=== PATIENT | male | born 1935 | race African-American/Black ===

== ENCOUNTER 2016-12-15 17:02 | Inpatient (IN) | payer MEDICARE ==
--- NOTE | ~2016-12-15 | HP ---
History And Physical [id number] [place]. [address] NAME: PIA LAGUNA JR : 39 STATUS : ADM IN [facility]#: [id number] AGE: 81 ADM/REG DATE : 12/15/16 MR#: [id number] REPORT SERV DATE: 12/16/16 DICTATED BY: NORIS MENARD DATE: 12/16/16 REPORT STATUS : Draft TRANSCRIBED BY: MODMary Jane DATE: 12/16/16 DATE OF ADMISSION: 12/15/2016 CHIEF COMPLAINT: Altered mental status and fever. HISTORY OF PRESENT ILLNESS: Mr. Laguna is a 81-year-old man who was diagnosed with influenza yesterday at the [facility] and was immediately started on Tamiflu. However, when he arrived at home, he had altered mental status and he collapsed, 911 was dispatched. In the ER, he had a temp of 102.8 and his O2 saturation was in the 70s. He was immediately put on BiPAP and transferred to the IMCU. Pulmonary was consulted and he has been weaned down to 4 L. He is confused. He does not seem to recognize me. He is complaining of pain in his left side. He has known history of rib fractures from a fall the day before. PAST MEDICAL HISTORY: Significant for mild dementia, severe COPD, emphysema, and significant pulmonary hypertension. He also has bronchiectasis. He also has diastolic dysfunction with an EF of 59%, gastroesophageal reflux disease, constipation, depression. He was an ex- smoker. ALLERGIES: NO KNOWN DRUG ALLERGIES. CURRENT MEDICATIONS: Included Tylenol 500 mg two tabs 3 times a day, Tamiflu, Mucinex 600 mg twice daily for 7 days, Prilosec 20 daily, rosuvastatin 10 mg daily, aspirin 81 daily, Breo 100 one puff daily, potassium 20 mEq twice daily, Robitussin as needed, Celexa 20 mg at bedtime, albuterol q.6 hours as needed, ProAir HFA one puff q.4 hours as needed, Compazine one puff twice daily, Symbicort 164.5 mcg two puffs every 12 hours, Spiriva 18 mcg one cap daily, furosemide 20 mg daily, Flonase two sprays daily. SOCIAL HISTORY: He is an ex-smoker, ex-alcoholic. He lives with his niece. FAMILY HISTORY: Significant for hypertension, diabetes, and dementia. REVIEW OF SYSTEMS: He is having pain on his left side. Denies chest pain, shortness of breath. No nausea, vomiting, or diarrhea. PHYSICAL EXAMINATION: VITAL SIGNS: Temp is 98.9, blood pressure is 134/74, pulse is 90, respiratory rate is 30, O2 saturation on 5 L was 95%, but he is currently on 4 L. GENERAL: He is a frail elderly man in no apparent distress. HEENT: Normocephalic, atraumatic. Conjunctiva not injected. No scleral icterus. He is edentulous. CARDIAC: Regular rate and rhythm. LUNGS: He has generalized decreased breath sounds. No wheezing, rhonchi, or rales appreciated. He does have tenderness on his left side. ABDOMEN: Positive bowel sounds. Soft, nondistended, nontender. : No Ramirez in use. History And Physical [address] [place]. [address] NAME: PIA LAGUNA : 39 STATUS : ADM IN [facility]#: [id number] AGE: 81 ADM/REG DATE : 12/15/16 MR#: [id number] REPORT SERV DATE: 12/16/16 DICTATED BY: NORIS MENARD DATE: 12/16/16 REPORT STATUS : Draft TRANSCRIBED BY: YURI DATE: 12/16/16 EXTREMITIES: No edema. SKIN: No pressure ulcers. NEURO: He is alert, fluent. He knows who he is, but he is not quite sure where he is and he does not recognize me. He is also hard of hearing which makes it a little difficult, but he has about 4/5 strength in all of his extremities. No facial droop. He does have a slight tremor. LABORATORY EVALUATION: White count was 7.3, hemoglobin 13.6, hematocrit 39.6. Glucose 198. Lactate was normal at 1. Procalcitonin was normal at 0.12. Chemistries: Sodium was 137, potassium 4.7, chloride 102, bicarb 20, BUN 26, creatinine 1.3, albumin was 3.4. Troponin was 0.04. BNP was 54.3. He had an ABG that showed a pH of 7.37, 39, 139, 21.9, and 99.1%. Chest x-ray show bibasilar linear fibrosis and/or chronic atelectasis, pleural thickening or fluid in the costophrenic angle. CAT scan of the abdomen and pelvis showed left-sided fractures, cardiomegaly with bibasilar atelectasis. When compared to previous imaging, these changes were chronic. He also had another chest x-ray this morning that showed bibasilar atelectasis, right greater than left. EKG showed sinus tachycardia at 128 beats per minute. There is a rightward axis and T-wave inversion in V4, but no acute ST-T wave changes. IMPRESSION AND PLAN: 1. This is an elderly man with severe chronic obstructive pulmonary disease and pulmonary hypertension and bronchiectasis, who developed an influenza infection with high fever. We will continue Tamiflu, even though there is no definite pneumonia. His condition is guarded. We will go ahead and treat him with Levaquin as a precaution. We will continue his oxygen and continue to wean as necessary. Continue bronchodilators. Continue IV steroids, and Pulmonary of course to continue to follow. 2. Rib fractures. I want to avoid any stronger medications, i.e. opioids with his delirium and his respiratory status. So, we will use Tylenol and Voltaren gel for pain control. 3. The patient has mild dementia at baseline and now does have some delirium. We will just continue to monitor and hopefully as he feels better that will improve. 4. Constipation. Continue Senokot. 5. The patient is a DNR, limited additional intervention and I have updated his niece, Ms. Sims by phone. SIRISHA/EZEQUIELL Noris Menard M.D. / [id number] CC: Gab Garcia J. Mack
--- NOTE | ~2016-12-15 | DS ---
Discharge Summary [facility] [address] [place]. [address] NAME: PIA BAUGH JR : 39 STATUS : DIS IN PAT#: [id number] AGE: 81 ADM/REG DATE : 12/15/16 MR#: [id number] REPORT SERV DATE: 12/29/16 DICTATED BY: NORIS MENARD DATE: 12/28/16 REPORT STATUS : Draft TRANSCRIBED BY: YURI DATE: 12/28/16 Data Collection from hospitalization DISCHARGE DIAGNOSES: 1. Chronic obstructive pulmonary disease exacerbation. 2. Influenza. 3. Delirium/weakness. 4. Hypertension. 5. Gastroesophageal reflux disease. 6. Mild dementia. 7. Emphysema. 8. Pulmonary hypertension. 9. Depression. 10.Former tobacco use. CONSULTATIONS: Angy James M.D. PROCEDURES PERFORMED: None. DISCHARGE MEDICATION: Tylenol caplet 1000 mg three times a day, Norvasc 2.5 mg daily, aspirin 81 mg daily, Lipitor 20 mg daily, Celexa 20 mg at bedtime, Voltaren gel 2 g topically three times a day, Flonase nasal spray two sprays nasally in each nostril twice a day, Lasix 20 mg daily, guaifenesin LA 600 mg twice a day, Tamiflu 75 mg twice a day, Protonix 40 mg before breakfast, Sarna 1 application topically three times a day, Spiriva one capsule via HandiHaler daily as instructed, Deltasone 40 mg with breakfast, Proventil 3 mL via inhaler every four hours while awake, Mylanta 30 mL every six hours as needed, Robitussin 200 mg four times a day as needed, Senokot two tablets at bedtime as needed, Proventil 3 mL via inhaler every two hours as needed, Flector patches 1 patch topically twice a day for 30 days, Crestor 10 mg daily, Breo Ellipta one puff via inhaler daily, Klor- Con 20 mEq twice a day, and Symbicort as instructed. CONDITION AT DISCHARGE: Stable. DISPOSITION: The patient was discharged to [facility] on a mechanical soft diet with activities as instructed. He will follow up at [facility] in 2 weeks following discharge. He will follow up with Dr. Ramirez in 2 to 3 weeks following discharge. HOSPITAL COURSE: This is a 81-year-old man who was diagnosed with influenza on the day prior to this admission at the [facility] and was immediately started on Tamiflu. However, when he arrived home, he developed an altered mental status and he collapsed. 911 was called. In the emergency room, he had a temperature of 102.8 and his O2 saturation was in the 70s. He was immediately placed on BiPAP and transferred to the [facility]. He was admitted to the hospital at this time for further evaluation and treatment. Upon admission, he was seen by Dr. Angy James regarding hypoxia. The patient had been treated with BiPAP supplemental oxygen, bronchodilators, and systemic steroids, and he responded quickly. He was currently doing much better with regard to his oxygenation. He Discharge Summary [address] [place]. [address] NAME: PIA BAUGH : 39 STATUS : DIS IN PAT#: [id number] AGE: 81 ADM/REG DATE : 12/15/16 MR#: [id number] REPORT SERV DATE: 12/29/16 DICTATED BY: NORIS MENARD DATE: 12/28/16 REPORT STATUS : Draft TRANSCRIBED BY: YURI DATE: 12/28/16 was complaining of significant pain secondary to right-sided rib fractures related to his fall. He also complained of a productive cough with thick green sputum. He does have a long history of COPD and had been on inhalers and as an outpatient. Chest x-ray revealed bibasilar atelectasis, small bilateral effusions, and hyperinflation consistent with COPD. Procalcitonin level was 0.12. It was felt that his hypoxia was likely secondary to COPD exacerbation related to underlying flu and atelectasis/splinting secondary to pain from rib fractures related to his recent fall. His Solu-Medrol was going to be changed to prednisone. Tamiflu was continued. Sputum culture was going to be obtained. Spiriva and Proventil were started as well as nebulized steroids with budesonide. BiPAP was discontinued. Mucinex was going to begin. was added to his regimen. We would wean supplemental oxygen as tolerated. The patient was complaining of pain in his left thigh. He is being treated with Levaquin. The patient is a DNR code status. Senokot was continued. On the , he seemed to be feeling better. He was not complaining as much that morning of left-sided pain. White count was 13.7. He was evaluated by Physical Therapy. He said he was feeling much better. Procalcitonin level was going to be checked. The next day, he seemed to be breathing better. He had decreased breath sounds throughout. His lungs were clear bilaterally. White count was 12.3. His chest x-ray showed improved bibasilar atelectasis as well as stable chronic airspace disease. Tamiflu and prednisone were continued. Levaquin was stopped. On 01/16/2017, he still felt weak and anxious, he had an occasional cough, he remained afebrile, he had no edema. O2 was being tapered. He did have a bowel movement. Over the next couple of days, he remained stable. His delirium had resolved. Blood pressure control had improved. On 12/21/2016, he had no acute complaints. Blood cultures remained negative. Discharge instructions were given. Due to his improved and stable condition, he was discharged to [facility] with the above-stated instructions. Information collected by: Aysha Shoemaker I submit the above information as my discharge summary. REJI/YURI Noris Menard M.D. / [id number] CC: Gab Garcia [facility]
--- NOTE | ~2016-12-15 | CN ---
Consultation Report [address] [place]. [address] NAME: PIA BAUGH : 39 STATUS : ADM IN PAT#: [id number] AGE: 81 ADM/REG DATE : 12/15/16 MR#: [id number] REPORT SERV DATE: 12/17/16 DICTATED BY: ANGY MARTINES DATE: 12/16/16 REPORT STATUS : Draft TRANSCRIBED BY: MODL DATE: 12/16/16 DATE OF CONSULTATION: 12/16/2016 REASON FOR CONSULTATION: Hypoxia. HISTORY OF PRESENT ILLNESS: Note-significant portion of this history is taken from the available medical record. The patient is a 81-year-old black male, former smoker, with chronic obstructive pulmonary disease, emphysema, pulmonary hypertension, newly diagnosed influenza-on Tamiflu, who was admitted after a fall with loss of consciousness. Upon presentation, he was found to be hypoxic, so Pulmonary was consulted for assistance. The patient was treated with BiPAP, supplemental oxygen, bronchodilators and systemic steroids and responded quickly. Currently, he is doing much better with regard to his oxygenation. He is complaining of significant pain secondary to right-sided rib fractures related to his fall. He also complains of cough productive of thick arreola sputum. He is unable to give details regarding symptoms prior to his admission though he does state that he has a long history of COPD and has been on inhalers as an outpatient. It is notable that he states he had a flu shot per his primary care physician several weeks ago. PAST MEDICAL HISTORY: 1. COPD. 2. Emphysema. 3. Previous smoker. 4. GERD. 5. Degenerative joint disease/back pain. 6. Orthostatic hypotension. 7. Cervical spondylosis. 8. Cataracts. 9. Polyneuropathy. 10.Hyperlipidemia. 11.Bilateral hearing loss. 12.Cholecystectomy. 13.Colon polyps. 14.Urinary incontinence. 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 16.Dementia. 17.Appendectomy. FAMILY HISTORY: He denies a family history of pulmonary diseases. SOCIAL HISTORY: The patient smoked one pack of cigarettes per day for more than 20 years and quit three years ago. He has a history of occupational exposures related to his work Consultation Report [address] [place]. 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. He denies ethanol intake, past/present drug use, or chewing tobacco. He is unmarried and has two sons. He lives with his niece. MEDICATIONS: Outpatient and inpatient medications were reviewed and are as documented record. Notable medications include Spiriva 18 mcg once daily and Symbicort 160/4.5 mcg two puffs twice daily. ALLERGIES: HE DENIES MEDICATION ALLERGIES. REVIEW OF SYSTEMS: A 10-point system review was attempted and is remarkable for the symptoms as described in the history of present illness: PHYSICAL EXAMINATION: VITAL SIGNS: Temperature 99.9 degrees, heart rate 97, blood pressure 155/74, respiratory rate 19, oxygen saturation 95% on supplemental oxygen at a flow rate of 4 L/minute. GENERAL: Anxious appearing black male. Alert, oriented, no apparent distress. HEENT: Normocephalic. Atraumatic. There is no scleral icterus. The conjunctivae are clear. The oropharynx is clear. He is edentulous. NECK: Supple. No lymphadenopathy was noted. LUNGS: There are diminished breath sounds throughout. The lungs are clear to auscultation bilaterally. There is obvious splinting. HEART: Regular rate and rhythm. ABDOMEN: Soft. Nontender. Nondistended. There are normal bowel sounds in all four quadrants. BILATERAL EXTREMITIES: There are no clubbing, cyanosis, or edema. NEUROLOGICAL: Limited exam was found to be nonfocal. SKIN: No rashes were noted. LABORATORY RESULTS: The labs were reviewed and are as documented in record. Notable labs include a white blood cell count of 10.0. The procalcitonin is 0.12. The lactate is 1.0. The BNP on admission was 54.3. BUN is 26 with a creatinine of 1.30. Arterial blood gas on admission revealed a pH of 7.32, pCO2 37, PO2 66 on 100% FiO2. The arterial blood gas today revealed a pH of 7.37, pCO2 of 39, and pO2 of 139, on BiPAP 15/5 with FiO2 of 40%. IMAGING: Chest x-ray done this admission revealed bibasilar atelectasis, small bilateral effusions and hyperinflation consistent with known COPD. ASSESSMENT/PLAN: 1. The patient is a 81-year-old black male, former smoker, with emphysema, hypoxia, COPD, influenza, and atelectasis. His hypoxia is likely secondary to COPD exacerbation related to underlying flu and atelectasis/splinting secondary to pain from rib Consultation Report [address] [place]. [address] NAME: PIA BAUGH JR : 39 STATUS : ADM IN PAT#: [id number] AGE: 81 ADM/REG DATE : 12/15/16 MR#: [id number] REPORT SERV DATE: 12/17/16 DICTATED BY: ANGY MARTINES DATE: 12/16/16 REPORT STATUS : Draft TRANSCRIBED BY: YURI DATE: 12/16/16 fractures related to his recent fall. 2. I recommend treating him for presumed COPD exacerbation. He has already been started on Solu-Medrol. Could change this to prednisone 40 mg once daily for five days. 3. Continue Tamiflu. 4. Check sputum-consider discontinuing Levaquin as there is no evidence of bacterial infection at this time. 5. Bronchodilators-recommend continuing him on Spiriva and Proventil. 6. Nebulized steroids-we will add budesonide. 7. Discontinue BiPAP as it appears unnecessary at this point. 8. Improved pain control, as he is splinting due to his rib fractures. 9. Mucolytic-recommend Mucinex. 10.Improved pulmonary toilet-EzPAP and a flutter valve will be added to his regimen. 11.Wean supplemental oxygen as tolerated. Thank you very much for this consultation. PS/YURI Angy Martines M.D. / [id number] CC: Gab Garcia M.D.
[~2016-12-15 17:02] MED LIST: ALBUTEROL SULFATE INH; COMBIVENT RESPIM4 GM INH; L20 PO; SILDENAFIL; SINGULAIR1 PO; SPIRIVA INH; SYMBICORT 160/41 INH INH; VIAGRA100 MG
[2016-12-15 17:03] LABS: ALLENS TEST Pos; BE (BASE EXCESS) -6.8 MEQ/L (0 +/- 2.5); CARBOXYHEMOGLOBIN 1.9 % (0-3); HCO3 (ACTUAL BICARBONATE) 18.6 MEQ/L (23-27); HEMOBLOGIN CONTENT 14.1 G/DL (14-18); INSTRUMENT SERIAL # 8087; METHEMOGLOBIN 0.2 % (0-3); O2 CONTENT 17.7 VOL% (18-24); PCO2 (CO2 TENSION) 37 MMHG (35-45); PO2 (O2 TENSION) 66 MMHG (79-93); SAMPLE Arterial; pH 7.32 (7.37-7.43)
[2016-12-15] MEDS ORDERED: ACET500CAP PO ×3 (17:05→17:12)
[2016-12-15] MEDS ORDERED: TAMIFLU PO (17:05)
[2016-12-15] MEDS ORDERED: MUCINEX600 MG PO (17:06)
[2016-12-15] MEDS ORDERED: FLECTOR TOP (17:07)
[2016-12-15] MEDS ORDERED: SARNA TOP (17:08)
[2016-12-15] MEDS ORDERED: BREO ELLIPTA INH (17:09)
[2016-12-15] MEDS ORDERED: PRILO PO (17:09)
[2016-12-15] MEDS ORDERED: ASAB PO (17:09)
[2016-12-15] MEDS ORDERED: CRESTOR10 PO (17:09)
[2016-12-15] MEDS ORDERED: GGEXPUD PO (17:10)
[2016-12-15] MEDS ORDERED: KLOR-CON M2020 MEQ PO (17:10)
[2016-12-15] MEDS ORDERED: CELEXA20 PO (17:11)
[2016-12-15] MEDS ORDERED: PROAIR HFA INH (17:11)
[2016-12-15] MEDS ORDERED: ALBUTEROL0.083 % INH (17:11)
[2016-12-15] MEDS ORDERED: COMBIVENT RESPIM4 GM INH (17:12)
[2016-12-15] MEDS ORDERED: SPIRIVA INH (17:14)
[2016-12-15] MEDS ORDERED: FLONASE NAS (17:14)
[2016-12-15] MEDS ORDERED: SYMBICORT 160/41 INH INH (17:14)
[2016-12-15] MEDS ORDERED: L20 PO (17:14)
[2016-12-15 17:30] LABS: BASOPHILS 0.1 %; BASOPHILS ABSOLUTE 0.01 10/3/uL (0.0-0.16); EOSINOPHILS 0.1 %; EOSINOPHILS ABSOLUTE 0.01 10/3/uL (0.0-0.53); HEMATOCRIT 39.6 % (40.0-51.0); HEMOGLOBIN 13.6 g/dL (13.6-17.8); IMMATURE GRANULOCYTES 0.1 %; IMMATURE GRANULOCYTES ABSOLUTE 0.01 10/3/uL (0.0-0.11); LYMPHOCYTES ABSOLUTE 1.16 10/3/uL (0.67-4.30); MEAN CORPUS HGB CONC 34.3 g/dL (32.0-36.0); MEAN CORPUSCULAR HEMOGLOB 29.5 pg (26.0-34.0); MEAN CORPUSCULAR VOLUME 85.9 fL (80-100); MEAN PLATELET VOLUME 9.7 fL (9.2-13.0); MONOCYTES 1.7 %; MONOCYTES ABSOLUTE 0.12 10/3/uL (0.21-1.20); NEUTROPHILS ABSOLUTE 5.96 10/3/uL (2.02-8.40); PLATELET COUNT 198 10/3/uL (150-400); RBC DISTRIBUTION WIDTH 13.8 % (12.0-16.0); RED CELL COUNT 4.61 10/6/uL (4.7-6.1)
[2016-12-15 17:31] LABS: MANUAL DIFF NO %; WHITE BLOOD CELLS 7.3 10/3/uL (4.5-10.5)
[2016-12-15 18:07] LABS: A/G RATIO 0.9 (0.7-1.9); ALBUMIN 3.4 G/DL (3.5-5.0); ALKALINE PHOSPHATASE 67 U/L (45-117); CALCIUM, SERUM 8.2 MG/DL (8.5-10.4); CHLORIDE, SERUM 102 MMOL/L (96-112); CREATININE 1.38 MG/DL (0.70-1.30); GFR AFRICAN AMERICAN 56 ML/MIN (>=60); GFR NON AFRICAN AMERICAN 48 ML/MIN (>=60); GLOBULIN 3.6 G/DL (2.5-4.1); POTASSIUM, SERUM 4.7 MMOL/L (3.5-5.3); SGOT(AST) 37 U/L (5-40); SGPT(ALT) 22 U/L (5-65); SODIUM, SERUM 137 MMOL/L (135-148); TROPONIN I 0.04 NG/ML (<0.05)
[2016-12-15 18:08] LABS: BUN (BLOOD UREA NITROGEN) 26 MG/DL (6-23); CO2 (CARBON DIOXIDE) 20 MMOL/L (24-34); GLUCOSE, SERUM 171 MG/DL (60-99)
[2016-12-15 19:45] LABS: PROCALCITONIN 0.12 ng/mL (<0.5)
[2016-12-15 21:19] LABS: ALLENS TEST Pos; BE (BASE EXCESS) -4.7 MEQ/L (0 +/- 2.5); BIPAP 15/5 cm.H2O; CARBOXYHEMOGLOBIN 1.5 % (0-3); HCO3 (ACTUAL BICARBONATE) 19.9 MEQ/L (23-27); HEMOBLOGIN CONTENT 13.6 G/DL (14-18); INSTRUMENT SERIAL # 8087; METHEMOGLOBIN 0.2 % (0-3); O2 CONTENT 18.3 VOL% (18-24); OPERATOR ID 17589; PCO2 (CO2 TENSION) 35 MMHG (35-45); PO2 (O2 TENSION) 90 MMHG (79-93); SAMPLE Arterial; pH 7.37 (7.37-7.43)
[2016-12-16 04:10] LABS: ALLENS TEST Pos; BE (BASE EXCESS) -3.1 MEQ/L (0 +/- 2.5); BIPAP 15/5 cm.H2O; HCO3 (ACTUAL BICARBONATE) 21.9 MEQ/L (23-27); HEMOBLOGIN CONTENT 13.2 G/DL (14-18); INSTRUMENT SERIAL # 8083; METHEMOGLOBIN 0.1 % (0-3); O2 CONTENT 18.4 VOL% (18-24); OPERATOR ID 30014; PCO2 (CO2 TENSION) 39 MMHG (35-45); PO2 (O2 TENSION) 139 MMHG (79-93); SAMPLE Arterial; pH 7.37 (7.37-7.43)
[2016-12-16 04:21] LABS: BASOPHILS 0.1 %; BASOPHILS ABSOLUTE 0.01 10/3/uL (0.0-0.16); EOSINOPHILS 0 %; HEMATOCRIT 37.4 % (40.0-51.0); HEMOGLOBIN 12.7 g/dL (13.6-17.8); IMMATURE GRANULOCYTES 0.4 %; IMMATURE GRANULOCYTES ABSOLUTE 0.04 10/3/uL (0.0-0.11); LYMPHOCYTES 4.4 %; LYMPHOCYTES ABSOLUTE 0.44 10/3/uL (0.67-4.30); MANUAL DIFF NO %; MEAN CORPUSCULAR HEMOGLOB 29.7 pg (26.0-34.0); MEAN CORPUSCULAR VOLUME 87.6 fL (80-100); MEAN PLATELET VOLUME 9.1 fL (9.2-13.0); NEUTROPHILS 86.1 %; NEUTROPHILS ABSOLUTE 8.59 10/3/uL (2.02-8.40); PLATELET COUNT 180 10/3/uL (150-400); RBC DISTRIBUTION WIDTH 13.7 % (12.0-16.0); RED CELL COUNT 4.27 10/6/uL (4.7-6.1)
[2016-12-16 04:31] LABS: BUN (BLOOD UREA NITROGEN) 26 MG/DL (6-23); CALCIUM, SERUM 8.8 MG/DL (8.5-10.4); CHLORIDE, SERUM 100 MMOL/L (96-112); CO2 (CARBON DIOXIDE) 24 MMOL/L (24-34); GFR AFRICAN AMERICAN 60 ML/MIN (>=60); GFR NON AFRICAN AMERICAN 52 ML/MIN (>=60); POTASSIUM, SERUM 5.1 MMOL/L (3.5-5.3); SODIUM, SERUM 136 MMOL/L (135-148)
[2016-12-16 04:33] LABS: GLUCOSE, SERUM 119 MG/DL (60-99)
[2016-12-17 05:16] LABS: BASOPHILS 0.1 %; BASOPHILS ABSOLUTE 0.01 10/3/uL (0.0-0.16); EOSINOPHILS 0.1 %; EOSINOPHILS ABSOLUTE 0.01 10/3/uL (0.0-0.53); HEMATOCRIT 37.3 % (40.0-51.0); HEMOGLOBIN 12.7 g/dL (13.6-17.8); IMMATURE GRANULOCYTES 0.2 %; IMMATURE GRANULOCYTES ABSOLUTE 0.03 10/3/uL (0.0-0.11); LYMPHOCYTES 3.3 %; LYMPHOCYTES ABSOLUTE 0.45 10/3/uL (0.67-4.30); MEAN CORPUSCULAR HEMOGLOB 29.9 pg (26.0-34.0); MEAN CORPUSCULAR VOLUME 87.8 fL (80-100); MEAN PLATELET VOLUME 9.7 fL (9.2-13.0); MONOCYTES ABSOLUTE 0.55 10/3/uL (0.21-1.20); NEUTROPHILS 92.3 %; PLATELET COUNT 180 10/3/uL (150-400); RBC DISTRIBUTION WIDTH 13.5 % (12.0-16.0); RED CELL COUNT 4.25 10/6/uL (4.7-6.1); WHITE BLOOD CELLS 13.7 10/3/uL (4.5-10.5)
[2016-12-17 05:17] LABS: MANUAL DIFF NO %
[2016-12-17 05:22] LABS: ALBUMIN 2.7 G/DL (3.5-5.0); BUN (BLOOD UREA NITROGEN) 30 MG/DL (6-23); CALCIUM, SERUM 8.9 MG/DL (8.5-10.4); CHLORIDE, SERUM 99 MMOL/L (96-112); CO2 (CARBON DIOXIDE) 26 MMOL/L (24-34); CREATININE 1.13 MG/DL (0.70-1.30); GFR AFRICAN AMERICAN 71 ML/MIN (>=60); GFR NON AFRICAN AMERICAN 61 ML/MIN (>=60); GLUCOSE, SERUM 115 MG/DL (60-99); POTASSIUM, SERUM 4.7 MMOL/L (3.5-5.3); SODIUM, SERUM 134 MMOL/L (135-148)
[2016-12-18 06:56] LABS: BASOPHILS 0.1 %; BASOPHILS ABSOLUTE 0.01 10/3/uL (0.0-0.16); EOSINOPHILS 0 %; HEMATOCRIT 36.4 % (40.0-51.0); HEMOGLOBIN 12.5 g/dL (13.6-17.8); IMMATURE GRANULOCYTES 0.2 %; IMMATURE GRANULOCYTES ABSOLUTE 0.02 10/3/uL (0.0-0.11); LYMPHOCYTES 6.9 %; LYMPHOCYTES ABSOLUTE 0.85 10/3/uL (0.67-4.30); MEAN CORPUS HGB CONC 34.3 g/dL (32.0-36.0); MEAN CORPUSCULAR HEMOGLOB 29.8 pg (26.0-34.0); MEAN CORPUSCULAR VOLUME 86.7 fL (80-100); MEAN PLATELET VOLUME 9.8 fL (9.2-13.0); MONOCYTES 8.4 %; MONOCYTES ABSOLUTE 1.03 10/3/uL (0.21-1.20); NEUTROPHILS 84.4 %; NEUTROPHILS ABSOLUTE 10.42 10/3/uL (2.02-8.40); PLATELET COUNT 233 10/3/uL (150-400); RBC DISTRIBUTION WIDTH 13.4 % (12.0-16.0); WHITE BLOOD CELLS 12.3 10/3/uL (4.5-10.5)
[2016-12-18 06:57] LABS: MANUAL DIFF NO %
[2016-12-18 07:02] LABS: BUN (BLOOD UREA NITROGEN) 31 MG/DL (6-23); CALCIUM, SERUM 9.1 MG/DL (8.5-10.4); CHLORIDE, SERUM 99 MMOL/L (96-112); CO2 (CARBON DIOXIDE) 27 MMOL/L (24-34); CREATININE 1.16 MG/DL (0.70-1.30); GFR AFRICAN AMERICAN 69 ML/MIN (>=60); GFR NON AFRICAN AMERICAN 60 ML/MIN (>=60); GLUCOSE, SERUM 111 MG/DL (60-99); POTASSIUM, SERUM 4.1 MMOL/L (3.5-5.3); SODIUM, SERUM 135 MMOL/L (135-148)
[2016-12-19 06:27] LABS: BASOPHILS 0.1 %; BASOPHILS ABSOLUTE 0.01 10/3/uL (0.0-0.16); EOSINOPHILS 0.1 %; EOSINOPHILS ABSOLUTE 0.01 10/3/uL (0.0-0.53); HEMATOCRIT 37.8 % (40.0-51.0); HEMOGLOBIN 12.6 g/dL (13.6-17.8); IMMATURE GRANULOCYTES 0.2 %; IMMATURE GRANULOCYTES ABSOLUTE 0.02 10/3/uL (0.0-0.11); LYMPHOCYTES 8.9 %; LYMPHOCYTES ABSOLUTE 0.84 10/3/uL (0.67-4.30); MEAN CORPUS HGB CONC 33.3 g/dL (32.0-36.0); MEAN CORPUSCULAR HEMOGLOB 29.3 pg (26.0-34.0); MEAN CORPUSCULAR VOLUME 87.9 fL (80-100); MEAN PLATELET VOLUME 9.4 fL (9.2-13.0); MONOCYTES 9.3 %; MONOCYTES ABSOLUTE 0.88 10/3/uL (0.21-1.20); NEUTROPHILS 81.4 %; NEUTROPHILS ABSOLUTE 7.68 10/3/uL (2.02-8.40); PLATELET COUNT 240 10/3/uL (150-400); RBC DISTRIBUTION WIDTH 13.6 % (12.0-16.0); WHITE BLOOD CELLS 9.4 10/3/uL (4.5-10.5)
[2016-12-19 06:32] LABS: CALCIUM, SERUM 9.1 MG/DL (8.5-10.4); CHLORIDE, SERUM 100 MMOL/L (96-112); CO2 (CARBON DIOXIDE) 28 MMOL/L (24-34); CREATININE 1.07 MG/DL (0.70-1.30); GFR AFRICAN AMERICAN 76 ML/MIN (>=60); GFR NON AFRICAN AMERICAN 66 ML/MIN (>=60); GLUCOSE, SERUM 121 MG/DL (60-99); MANUAL DIFF NO %; POTASSIUM, SERUM 3.9 MMOL/L (3.5-5.3); SODIUM, SERUM 136 MMOL/L (135-148)
[2016-12-19 06:33] LABS: BUN (BLOOD UREA NITROGEN) 26 MG/DL (6-23)
[2017-06-08] MEDS ORDERED: FLOMAX4 PO (05:24)
[2017-06-08] MEDS ORDERED: BUSPIRONE7.5 MG PO (05:24)
[2017-06-08] MEDS ORDERED: CELEXA20 PO (05:25)
[2017-06-08] MEDS ORDERED: ASAB PO (05:25)
[2017-06-08] MEDS ORDERED: MCZ125 PO (05:26)
[2017-06-08] MEDS ORDERED: P10 PO (05:26)
[2017-06-08] MEDS ORDERED: PRILO PO (05:27)
[2017-06-08] MEDS ORDERED: CLARIT10 PO (05:28)
[2017-06-08] MEDS ORDERED: CRESTOR10 PO (05:28)
[2017-06-08] MEDS ORDERED: REM15 PO (05:28)
[2017-06-08] MEDS ORDERED: SENTAB PO (05:29)
[2017-06-08] MEDS ORDERED: BREO ELLIPTA INH (05:29)
[2017-06-08] MEDS ORDERED: VENTOLIN HFA INH (05:30)
[2017-06-08] MEDS ORDERED: SPIRIVA INH (05:30)
[2017-06-08] MEDS ORDERED: SYMBICORT 160/41 INH INH (05:31)
[2017-06-08] MEDS ORDERED: COMBIVENT RESPIM4 GM INH (05:32)
[2017-06-08] MEDS ORDERED: ALBUTEROL0.083 % INH (05:33)
== END 2016-12-21 17:22 | DRG 189 ==
LOC: ER 17:02 → ER/OF 20:49 → IMCU 12-16 00:04 → 7NO 12-17 12:34
PROVIDERS: Emergency Medicine; Internal Medicine Geriatric Medicine
PROC: 5A09357 Assistance with Respiratory Ventilation, Less than 24 Consecutive Hours, Continuous Positive Airway Pressure (ICD-10-PCS; principal; 2016-12-15)
DX: J96.01 Acute respiratory failure with hypoxia (principal); I27.2 Other secondary pulmonary hypertension; F03.90 Unspecified dementia, unspecified severity, without behavioral disturbance, psychotic disturbance, mood disturbance, and anxiety; S22.42XA Multiple fractures of ribs, left side, initial encounter for closed fracture; J44.1 Chronic obstructive pulmonary disease with (acute) exacerbation; J98.11 Atelectasis; J11.1 Influenza due to unidentified influenza virus with other respiratory manifestations; Z66 Do not resuscitate; E78.5 Hyperlipidemia, unspecified; Z87.891 Personal history of nicotine dependence; I10 Essential (primary) hypertension; K21.9 Gastro-esophageal reflux disease without esophagitis; Z79.899 Other long term (current) drug therapy; W19.XXXA Unspecified fall, initial encounter
CPT/HCPCS: 36600; 71010; 71020; 72125; 74176; 80048; 80053; 80076; 81001; 82040; 82805; 83605; 83735; 83880; 84145; 84484; 85025; 85610; 85730; 87040; 87641; 93005; 94640; 94660; 94667; 94668; 96365; 96374; 96375; 96376; 97162-GP; 99285; A9270-GY; J1956; J2930